=== PATIENT | female | born 1950 | race Caucasian/White ===

== ENCOUNTER → 2016-08-08 | Outpatient (CLI) | payer BC ==
[~2016-08-08] MED LIST: CPR500T PO; ESTR1TAB24 PO; PHEN-639 PO; PHEN60TA9 PO; PRAM0.12 GT; PRAM0.5T2 PO
--- NOTE | 2016-08-08 13:40 | Diagnostic Imaging Report ---
INDICATION: Cough and dyspnea. DISCUSSION: Two views of the chest were obtained with comparison made to 05/14/2015. The lungs remain hyperinflated. No focal consolidation, pleural fluid, or pneumothorax. A mildly elevated right hemidiaphragm is noted. Stable normal heart size. No acute osseous abnormality. IMPRESSION: Stable changes of COPD. Dictated by: Dictated on workstation # [id number]
== END ==
LOC: RAD 12:48
PROVIDERS: ATTEND Family Medicine
DX: R05 Cough (principal); J44.9 Chronic obstructive pulmonary disease, unspecified
CPT/HCPCS: 71020

== ENCOUNTER → 2016-12-11 | Outpatient (CLI) | payer BC ==
--- NOTE | 2016-12-11 09:49 | Diagnostic Imaging Report ---
PROCEDURE: CT sinuses without contrast TECHNIQUE: Multiple contiguous axial images were obtained through the sinuses without the use of intravenous contrast. Coronal and sagittal reformations were then performed. INDICATION: Sinusitis. COMPARISON STUDY: CT of the paranasal sinuses from 01/16/2012. FINDINGS: Bilateral maxillary antrectomies are again identified. A 3 mm polyp or mucous retention cyst is again seen in the floor of the left maxillary sinus. Remainder of the paranasal sinuses are normally aerated. No osseous destruction is present. Nasal turbinates are decompressed with no swelling. Visualized portions of the mastoid air cells are clear. The soft tissues appear normal. IMPRESSION: There is a chronic 3 mm mucous cyst or polyp in the left maxillary sinus with stable postoperative changes. Dictated by: Dictated on workstation # [id number]
== END ==
LOC: RAD 08:25
PROVIDERS: ATTEND Otolaryngology
DX: J32.0 Chronic maxillary sinusitis (principal); J32.3 Chronic sphenoidal sinusitis; J32.1 Chronic frontal sinusitis; J33.8 Other polyp of sinus
CPT/HCPCS: 70486